=== PATIENT | female | born 1945 | race American Indian/Alaskan Native ===

== ENCOUNTER 2019-06-12 11:19 | Outpatient (CLI) | payer MEDICARE ==
--- NOTE | 2019-06-13 10:09 | Mammography Report ---
BILATERAL DIGITAL SCREENING MAMMOGRAM WITH CAD INDICATION: Routine screening mammography. Breast cancer survivor status post right partial mastectom y and radiation therapy. TECHNIQUE: Digital bilateral 2D mammography was obtained in the craniocaudal and mediolateral obliq ue projections. This examination was interpreted with the benefit of Computer-Aided Detection montez crandall. COMPARISON: June 23 2018 g from [facility] FINDINGS: Breast Density: The breasts are heterogeneously dense, which may obscure small masses. No mass, architectural distortion or suspicious calcifications. The right breast is smaller than the left with posterior upper surgical scar. Moderate skin thickening of the right breast which is predom inantly inferior and moderate but less skin thickening of the inferior left breast. Bilateral benign calcifications. IMPRESSION:No mammographic evidence of malignancy. Postsurgical and post radiation changes in the rig ht breast and nonspecific skin thickening of the left breast. BI-RADS Category 2: Benign. No mammographic evidence of malignancy. Recommend routine screening ma mmography in one year. A "normal" or negative report should not discourage follow up or biopsy of a clinically significant f inding. A written summary of these findings will be mailed to the patient. The patient will be entered into a mammography reporting system which will generate a reminder letter for the patient's next appointmen t at the appropriate interval. The [employer] recommends yearly mammograms starting at age 40 and continuing as l lorena as a woman is in good health. Breast MRI is recommended for women with an approximate 20-25% or greater lifetime risk of breast cancer, including women with a strong family history of breast or ova chao cancer or who have been treated for Hodgkin's disease. Signer Name: Ag Whatley MD Signed: 06/13/2019 10:04 AM Workstation Name: [id number]
== END 2019-06-12 11:20 | disposition home or self-care (01) ==
LOC: SPVWC 11:19
PROVIDERS: ATTEND Surgery
DX: C50.911 Malignant neoplasm of unspecified site of right female breast (principal); I10 Essential (primary) hypertension; E11.9 Type 2 diabetes mellitus without complications
CPT/HCPCS: 77066

== ENCOUNTER 2019-06-28 08:36 | Outpatient (CLI) | payer MEDICARE ==
--- NOTE | 2019-06-29 10:15 | Ultrasound Report ---
RIGHT BREAST ULTRASOUND HISTORY: Right breast pain. Status post right partial mastectomy in September 2018 with subsequent rad iation therapy. COMPARISON: Negative screening mammogram 06/12/2019 FINDINGS: Ultrasound of all 4 quadrants and the retroareolar area of the right breast was performed. No mass, cyst or suspicious shadowing. Benign scar at 10:00 8 cm from the nipple correlates with the area of pain. IMPRESSION: Negative right breast ultrasound with benign scar at 10:00. No mass or fluid collection. No suspiciou s finding. Recommend routine mammographic screening. BIRADS 2: Benign Signer Name: Ag Whatley MD Signed: 06/29/2019 10:11 AM Workstation Name: [id number]
== END 2019-06-28 08:37 | disposition home or self-care (01) ==
LOC: SPVWC 08:36
PROVIDERS: ATTEND Surgery
DX: C50.911 Malignant neoplasm of unspecified site of right female breast (principal)

== ENCOUNTER 2020-06-03 09:21 | Outpatient (CLI) | payer MEDICARE ==
--- NOTE | 2020-06-03 10:22 | Mammography Report ---
BILATERAL DIGITAL SCREENING MAMMOGRAM WITH CAD HISTORY: SCREENING MAMMOGRAM TECHNIQUE: Routine digital mammographic imaging performed. This examination was interpreted with mirlande rhoades benefit of Computer-aided Detection analysis. COMPARISON: 06/12/2019, 10/04/2018, 09/01/2018, 06/23/2018. FINDINGS: Breast Density: heterogeneously dense breast parenchymal pattern which somewhat lessens the sensitivi ty of the evaluation. Digital CC and MLO views demonstrate stable right upper outer breast lumpectomy change. Stable benig n-appearing calcifications bilaterally without evidence of suspicious mass, microcalcifications, or o ther abnormality. IMPRESSION: No mammographic evidence of malignancy. If the clinical examination remains stable, recommend bilate ral mammogram in approximately one year. BIRADS 2: Benign Finding(s). FURTHER INFORMATION: According to the [employer], yearly mammograms are recommend ed starting at age 40 and continuing as long as a woman is in good health. Clinical Breast Exams shou ld be part of a periodic health exam-about every 3 years for women in their 20s and 30s and every yea r for women 40 and over. Breast self exam is an option for women starting in their 20s. Any breast ch george noted on a breast self exam should be reported promptly to the patient's healthcare provider. Br east MRI is recommended for women with an approximately 20-25% or greater lifetime risk of breast can cer, including women with a strong family history of breast or ovarian cancer and women who have been treated for Hodgkin's disease. A negative Mammography report should not discourage follow up or biopsy of a clinically significant f inding and/or abnormality. Dense breast tissue may obscure small neoplasms. The patient will be entered into a reminder system with a target due date for the next screening mamm ogram. Signer Name: Gordy Guadalupe MD Signed: 06/03/2020 10:17 AM Workstation Name: [id number]
== END 2020-06-03 09:22 | disposition home or self-care (01) ==
LOC: SPVWC 09:21
PROVIDERS: ATTEND Surgery
DX: Z12.31 Encounter for screening mammogram for malignant neoplasm of breast (principal)
CPT/HCPCS: 77067

== ENCOUNTER 2021-06-04 14:06 | Outpatient (CLI) | payer MEDICARE ==
--- NOTE | 2021-06-08 08:47 | Mammography Report ---
DIGITAL SCREENING MAMMOGRAM WITH CAD, 06/04/2021 CLINICAL INFORMATION / INDICATION: Routine screening mammography. TECHNIQUE: Digital bilateral 2D mammography was obtained in the craniocaudal and mediolateral obliqu e projections. This examination was interpreted with the benefit of Computer-Aided Detection analysis . COMPARISON: 06/03/2020, 06/28/2019, 06/12/2019 FINDINGS: Breast Density: The breasts are heterogeneously dense, which may obscure small masses. No dominant mass, suspicious calcifications, or architectural distortion in either breast. Postoperative changes are again seen along the upper outer right breast with bilateral benign-appeari ng calcifications. No other significant interval changes. IMPRESSION: No mammographic evidence of malignancy. Follow up recommendation: Routine yearly BI-RADS Category 2: Benign. A "normal" or negative report should not discourage follow up or biopsy of a clinically significant f inding. A written summary of these findings will be mailed to the patient. The patient will be entered into a mammography reporting system which will generate a reminder letter for the patient's next appointmen t at the appropriate interval. The [employer] recommends yearly mammograms starting at age 40 and continuing as l lorena as a woman is in good health. Breast MRI is recommended for women with an approximate 20-25% or greater lifetime risk of breast cancer, including women with a strong family history of breast or ova chao cancer or who have been treated for Hodgkin's disease. Signer Name: Mian Iqbal MD Signed: 06/08/2021 8:42 AM Workstation Name: [id number]
== END 2021-06-04 14:07 | disposition home or self-care (01) ==
LOC: EDBD → MERGE 14:06 → UNMERGE 14:06 → SPVWC 14:06
PROVIDERS: ATTEND Surgery
DX: Z12.31 Encounter for screening mammogram for malignant neoplasm of breast (principal)
CPT/HCPCS: 77067